=== PATIENT | female | born 1955 | race Caucasian/White ===

== ENCOUNTER 2017-05-27 10:59 | Outpatient (CLI) | payer BC, OTHER ==
--- NOTE | 2017-05-28 15:58 | Mammography Report ---
DIGITAL SCREENING MAMMOGRAM: 05/27/2017 CLINICAL INDICATION: A 62-year-old, for screening. COMPARISON: 12/2015, 06/2014, 04/2013, 06/2011, 06/2010. TECHNIQUE: Routine CC and MLO projections were obtained of the breasts. Bilateral laterally exaggera isabel craniocaudal views. FINDINGS: The breasts again demonstrate heterogeneously dense fibroglandular parenchyma bilaterally. A few punctate, typically benign calcifications are present. No suspicious masses, clustered microca lcifications, or regions of architectural distortion are identified. IMPRESSION: BENIGN FINDINGS. RECOMMENDATION: ROUTINE ANNUAL SCREENING UNLESS OTHERWISE CLINICALLY INDICATED. BIRADS CATEGORY 2-BENIGN FINDINGS. STANDARD QUALIFYING STATEMENTS 1. This examination was reviewed with the aid of Computer-Aided Detection (CAD). 2. A negative or benign imaging report should not delay biopsy if clinically suspicious findings are present. Consider surgical consultation if warranted. More than 5% of cancers are not identified by i maging. 3. Dense breasts may obscure an underlying neoplasm. JOB #: [id number] EXT JOB #:[id number]
== END 2017-05-27 11:00 | disposition home or self-care (01) ==
LOC: DI.N 10:59
PROVIDERS: ATTEND Physician Assistant Medical
DX: Z12.31 Encounter for screening mammogram for malignant neoplasm of breast (principal)
CPT/HCPCS: 77067

== ENCOUNTER 2018-06-20 11:55 | Outpatient (CLI) | payer BC, OTHER ==
--- NOTE | 2018-06-21 13:53 | Mammography Report ---
Reason: SCREENING MAMMO Procedure Date: 06/20/2018 Accession Number: [id number] / [id number] Procedure: MGN - Screening Mammo Dig Bilat CPT Code: FULL RESULT: EXAM: Screening Mammo Dig Bilat DATE: 06/20/2018 12:14 PM CLINICAL HISTORY: Routine screening TECHNIQUE: Bilateral CC and MLO views were obtained. COMPARISON: 05/27/2017, 01/10/2016, 07/25/2014 and 05/29/2013 FINDINGS: The breast tissue is heterogeneously dense. There is no significant interval change. No suspicious masses, clustered microcalcifications, or regions of architectural distortion are identified. IMPRESSION: Negative examination RECOMMENDATION: Routine annual screening unless otherwise clinically indicated. BIRADS CATEGORY 1: Negative STANDARD QUALIFYING STATEMENTS: 1. This examination was reviewed with the aid of Computer-Aided Detection (CAD). 2. A negative or benign imaging report should not delay biopsy if clinically suspicious findings are present. Consider surgical consultation if warrented. More than 5% of cancers are not identified by imaging. 3. Dense breasts may obscure an underlying neoplasm.
== END 2018-06-20 11:56 | disposition home or self-care (01) ==
LOC: DI.N 11:55
DX: Z12.31 Encounter for screening mammogram for malignant neoplasm of breast (principal)
CPT/HCPCS: 77067

== ENCOUNTER 2019-08-02 08:00 | Outpatient (CLI) | payer MEDICARE, OTHER ==
[2019-08-02 13:24] LABS: BASOPHILS # (AUTO) 0.1 10^3/uL (0.0-0.1); BASOPHILS % (AUTO) 1.2 %; EOSINOPHILS # (AUTO) 0.1 10^3/uL (0.0-0.7); EOSINOPHILS % (AUTO) 1.6 %; HGB - HEMOGLOBIN 13.8 g/dL (12.0-16.0); LYMPHOCYTES # (AUTO) 1.5 10^3/uL (1.5-3.5); LYMPHOCYTES % (AUTO) 28.9 %; MEAN CORPUSCULAR HEMOGLOBIN 30.9 pg (27.0-31.0); MEAN CORPUSCULAR HGB CONC 32.2 g/dL (32.0-36.0); MEAN PLATELET VOLUME 10.9 fL (7.9-10.8); MONOCYTES # (AUTO) 0.4 10^3/uL (0.0-1.0); MONOCYTES % (AUTO) 8.6 %; NEUTROPHILS # (AUTO) 3.1 10^3/uL (1.5-6.6); NEUTROPHILS % (AUTO) 59.5 %; PLT - PLATELET COUNT 265 10^3/uL (130-450); RED BLOOD COUNT 4.46 10^6/uL (4.20-5.40); RED CELL DISTRIBUTION WIDTH 12.7 % (12.0-15.0); WHITE BLOOD COUNT 5.1 x10^3/uL (4.8-10.8)
[2019-08-02 13:46] LABS: ALBUMIN 4.3 g/dL (3.2-5.5); ALBUMIN/GLOBULIN RATIO 1.7 (1.0-2.2); ALKALINE PHOSPHATASE 62 IU/L (42-121); ALT ALANINE AMINOTRANSFERASE 16 IU/L (10-60); AST ASPARTATE AMINOTRANSFERASE 22 IU/L (10-42); BILIRUBIN,TOTAL 0.7 mg/dL (0.2-1.0); BUN - BLOOD UREA NITROGEN 20 mg/dL (6-20); CARBON DIOXIDE - CO2 28 mmol/L (21-32); CHLORIDE 105 mmol/L (101-111); CHOL/HDL RATIO 3.1 (<4.4); CHOLESTEROL 255 mg/dL; CREATININE 0.7 mg/dL (0.4-1.0); GFR - MDRD 84 (>89); GLUCOSE 90 mg/dL (70-100); HDL CHOLESTEROL 83 mg/dL; LDL CHOLESTEROL,CALCULATED 159 mg/dL; LDL/HDL RATIO 1.9 (<4.4); SODIUM 139 mmol/L (135-145); TOTAL PROTEIN 6.9 g/dL (6.7-8.2); VLDL CHOLESTEROL 13 mg/dL
== END 2019-08-02 23:59 | disposition home or self-care (01) ==
LOC: LAB.WCP 08:00
PROVIDERS: ATTEND Physician Assistant Medical
DX: E78.5 Hyperlipidemia, unspecified (principal); J45.909 Unspecified asthma, uncomplicated
CPT/HCPCS: 36415; 80053; 80061; 83721; 85025

== ENCOUNTER 2019-10-25 11:36 | Outpatient (CLI) | payer MEDICARE, OTHER ==
--- NOTE | 2019-10-27 09:07 | Ultrasound Report ---
Reason: CAROTID BRUIT Procedure Date: 10/25/2019 Accession Number: [id number] / [id number] Procedure: US - Carotid Doppler Complete CPT Code: Final Report FULL RESULT: EXAM: BILATERAL CAROTID AND VERTEBRAL ARTERY DUPLEX DOPPLER ULTRASOUND: EXAM DATE: 10/25/2019 12:15 PM CLINICAL HISTORY: Carotid bruit. COMPARISON: None. TECHNIQUE: Grayscale imaging, color Doppler, and duplex spectral Doppler were used to evaluate the carotid and vertebral arteries bilaterally. Static images were obtained. FINDINGS: No significant plaque is identified in the right or left common or internal carotid arteries. Normal antegrade flow is present in bilateral vertebral arteries. VELOCITIES (cm/sec): Right CCA mid: PSV 63 cm/sec CCA dist: PSV 54 cm/sec ICA prox: PSV 33 cm/sec, EDV 12 cm/sec ICA mid: PSV 44 cm/sec, EDV 16 cm/sec ICA dist: PSV 66 cm/sec, EDV 19 cm/sec ECA: PSV 62 cm/sec Vert: PSV 59 cm/sec ICA/CCA: 1.05 Left CCA mid: PSV 75 cm/sec CCA dist: PSV 59 cm/sec ICA prox: PSV 41 cm/sec, EDV 16 cm/sec ICA mid: PSV 76 cm/sec, EDV 26 cm/sec ICA dist: PSV 72 cm/sec, EDV 30 cm/sec ECA: PSV 74 cm/sec Vert: PSV 43 cm/sec ICA/CCA: 1.01 ICA diameter stenosis: Right: <50% by velocity and <70% by NASCET criteria. Left: <50% by velocity and <70% by NASCET criteria. IMPRESSION: 1. No significant bilateral carotid artery plaquing. 2. In the right carotid artery there are no elevated carotid artery velocities to suggest hemodynamically significant stenosis. 3. In the left carotid artery there are no elevated carotid artery velocities to suggest hemodynamically significant stenosis. 4. Normal antegrade flow is present in bilateral vertebral arteries. General Recommendations: Stenosis =50% ICA - Follow-up ultrasound 6-12 months Stenosis <50% ICA - High Risk Patient with plaque - Follow-up ultrasound 1-2 years Normal Study but High Risk Patient - Follow-up ultrasound 3-5 years Management recommendations and diagnostic criteria are based on current IAC endorsed standards in Carotid Artery Stenosis: Grayscale and Doppler Ultrasound Diagnosis. Validated velocity measurements with angiographic measurements and velocity criteria are extrapolated from diameter data as defined by the Society of Radiologists in Ultrasound Consensus Conference Radiology 2003; 229;340-346. RADIA
== END 2019-10-25 11:37 | disposition home or self-care (01) ==
LOC: DI 11:36
PROVIDERS: ATTEND Surgery
DX: R09.89 Other specified symptoms and signs involving the circulatory and respiratory systems (principal)
CPT/HCPCS: 93880

== ENCOUNTER 2019-10-26 09:18 | Day surgery (SDC) | payer MEDICARE, OTHER ==
[2019-10-26] MEDS ORDERED: LACTATED RINGERS 1,000 ML IV ONE (09:39)
[2019-10-26] MEDS ORDERED: fentaNYL 250 MCG/5 ML VIAL IVP ONE (10:12)
[2019-10-26] MEDS ORDERED: MIDAZOLAM 2 MG/2 ML VIAL IVP ONE (10:12)
[2019-10-26 11:30] VITALS: BP 150/74
== END 2019-10-26 09:19 | disposition home or self-care (01) ==
LOC: SDS 09:18
PROVIDERS: ATTEND Surgery
DX: Z12.11 Encounter for screening for malignant neoplasm of colon (principal); Q43.8 Other specified congenital malformations of intestine; J45.909 Unspecified asthma, uncomplicated; Z87.891 Personal history of nicotine dependence
CPT/HCPCS: G0121; J3010; J7120

== ENCOUNTER 2019-10-27 09:43 | Outpatient (CLI) | payer MEDICARE, OTHER ==
--- NOTE | 2019-10-30 09:16 | Mammography Report ---
Reason: ROUTINE MAMMO Procedure Date: 10/27/2019 Accession Number: [id number] / [id number] Procedure: MGN - Screening Mammo w/Junior CPT Code: Final Report FULL RESULT: EXAM: Screening Mammo w/Junior DATE: 10/27/2019 10:07 AM CLINICAL HISTORY: Screening encounter. TECHNIQUE: (B) - Bilateral CC and MLO views were obtained. COMPARISON: 06/20/2018 through 05/29/2013. PARENCHYMAL PATTERN: (D) - The breast(s) demonstrate(s) heterogeneously dense fibroglandular parenchyma. FINDINGS: There are no suspicious masses, calcifications, or areas of distortion. IMPRESSION: Negative examination. BI-RADS category 1. RECOMMENDATION: (ANNUAL) - Recommend routine annual screening mammography. BI-RADS CATEGORY: (1) - Negative. STANDARD QUALIFYING STATEMENTS: 1. This examination was not reviewed with the aid of Computer-Aided Detection (CAD). 2. A negative or benign imaging report should not preclude biopsy if clinically suspicious findings are present. 3. Dense breasts may obscure an underlying neoplasm. 4. This examination was reviewed with the aid of 3D breast imaging (tomosynthesis).
== END 2019-10-27 09:44 | disposition home or self-care (01) ==
LOC: DI.N 09:43
DX: Z12.31 Encounter for screening mammogram for malignant neoplasm of breast (principal)
CPT/HCPCS: 77063; 77067

== ENCOUNTER 2020-02-29 15:12 | Outpatient (CLI) | payer MEDICARE, OTHER ==
--- NOTE | 2020-02-29 18:07 | DEXA Report ---
Reason: POST MENOPAUSAL Procedure Date: 02/29/2020 Accession Number: [id number] / [id number] Procedure: DEX - Dexa Spine and/or Hip CPT Code: Final Report FULL RESULT: PROCEDURE: Dexa Spine and/or Hip INDICATIONS: POST MENOPAUSAL TECHNIQUE: Dual energy x-ray absorptiometry (DXA) was performed on a Wander System. Regions measured are the AP Spine, femoral neck, and if needed forearm. COMPARISON: None. FINDINGS: Lumbar Spine: Bone Mineral Density 1.099 g/cm/cm,T score -0.6, normal Left Femoral Neck: Bone Mineral Density 0.966 g/cm/cm, T score -0.3, normal (T score greater or equal to -1.0: NORMAL) (T score from -1.1 to -2.4: OSTEOPENIA) (T score less than or equal to -2.5 to: OSTEOPOROSIS) Impression: Normal bone mineral density for age. Patients with diagnosis of osteoporosis or osteopenia should have regular bone mineral density assessment. For those eligible for Medicare, routine testing is allowed once every 2 years. Testing frequency can be increased for patients who have rapidly progressing disease or for those who are receiving medical therapy to restore bone mass. Reviewed by: Cr Mahajan MD on 02/29/2020 6:06 PM PDT Approved by: Cr Mahajan MD on 02/29/2020 6:06 PM PDT Station ID: [id number]
== END 2020-02-29 15:13 | disposition home or self-care (01) ==
LOC: DI 15:12
PROVIDERS: ATTEND Obstetrics & Gynecology
DX: Z78.0 Asymptomatic menopausal state (principal)
CPT/HCPCS: 77080

== ENCOUNTER 2020-10-29 08:27 | Outpatient (CLI) | payer MEDICARE, OTHER ==
--- NOTE | 2020-10-30 10:06 | Mammography Report ---
BILATERAL DIGITAL SCREENING MAMMOGRAM 3D/2D: 10/29/2020 CLINICAL: Routine screening. Comparison is made to exams dated: 06/20/2018 mammogram, 05/27/2017 mammogram, 01/10/2016 mammogram, 1 09/24/2013 mammogram, and 05/29/2013 mammogram - [facility]. The tissue of both liz sts is heterogeneously dense. This may lower the sensitivity of mammography. No significant masses, calcifications, or other findings are seen in either breast. There has been no significant interval change. IMPRESSION: NEGATIVE There is no mammographic evidence of malignancy. A 1 year screening mammogram is recommended. This exam was interpreted at Station ID: [id number]. NOTE: For mammograms, a report in lay terms will be sent to the patient. Approximately 15% of breast malignancies will not be visualized mammographically. In the management of a palpable breast mass, a negative mammogram must not discourage biopsy of a clinically suspicious lesion. Electronically Signed By: London dumont/jersey:10/29/2020 09:47:57 ACR BI-RADS Category 1: Negative 3341F PARENCHYMAL PATTERN: (D) - The breast(s) demonstrate(s) heterogeneously dense fibroglandular paraletay ma. BI-RADS CATEGORY: (1) - 1 RECOMMENDATION: (ANNUAL) - Recommend routine annual screening mammography. [id number] 1 year screening LATERALITY: (B)
== END 2020-10-29 08:28 | disposition home or self-care (01) ==
LOC: DI.N 08:27
DX: Z12.31 Encounter for screening mammogram for malignant neoplasm of breast (principal)

== ENCOUNTER 2021-09-05 18:59 | Emergency (ER) | payer MEDICARE, OTHER ==
--- NOTE | 2021-09-05 20:36 | XRAY Report ---
PROCEDURE: Chest 2 View X-Ray INDICATIONS: cough TECHNIQUE: 2 view(s) of the chest. COMPARISON: None. FINDINGS: Surgical changes and devices: None. Lungs and pleura: No pleural effusions or pneumothorax. Lungs are clear. Mediastinum: Mediastinal contours are normal. Heart size is normal. Bones and chest wall: No suspicious bony abnormalities. Soft tissues appear unremarkable. IMPRESSION: No evidence acute pulmonary process. Reviewed by: Lakhwinder Keenan MD on 09/05/2021 8:35 PM PST Approved by: Lakhwinder Keenan MD on 09/05/2021 8:35 PM PST Station ID: [id number]
--- NOTE | 2021-09-05 21:13 | ED Physician Documentation ---
PD HPI DYSPNEA - Stated complaint Stated Complaint: SOA/MANUEL - Chief complaint Chief Complaint: Resp - History obtained from History obtained from: Patient - History of Present Illness Timing - onset: How many weeks ago (1) Timing - details: Gradual onset Pain level now: 0 Improved by: Sitting up Worsened by: Laying flat Associated symptoms: Cough (mild). No: Fever, Hemoptysis, Wheezing, Chest pain / discomfort, Bilateral edema, Unilateral edema Similar symptoms before: Has not had sx before Recently seen: Not recently seen - Additional information Additional information: c/o 1 week of dyspnea, nasal congestion, difficulty swallowing, mild cough. Symptoms have worsened over past 1-2 days. She is COVID vaccinated with booster.Denies fever. Review of Systems Constitutional: denies: Fever, Chills, Sweats Throat: denies: Sore throat Cardiac: reports: Reviewed and negative Respiratory: reports: Dyspnea, Cough. denies: Hemoptysis, Wheezing GI: reports: Reviewed and negative PD PAST MEDICAL HISTORY - Past Medical History Past Medical History: Yes Cardiovascular: Hypertension - Present Medications Home Medications: Ambulatory Orders Medication Instructions Recorded Confirmed Albuterol Sulf [Ventolin Hfa 1 puffs INH Q4HR PRN 09/05/21 09/05/21 Inhaler] Losartan [Cozaar] 100 mg PO DAILY 09/05/21 09/05/21 - Allergies Allergies/Adverse Reactions: Allergies Allergy/AdvReac Type Severity Reaction Status Date / Time amoxicillin Allergy Hives Verified 09/05/21 19:10 - Living Situation Living Arrangement: reports: At home PD ED PE NORMAL - Vitals Vital signs reviewed: Yes - General General: Alert and oriented X 3, No acute distress, Well developed/nourished - HEENT HEENT: Moist mucous membranes, Pharynx benign - Neck Neck: Supple, no meningeal sign, Thyroid normal - Cardiac Cardiac: RRR, No murmur - Respiratory Respiratory: No respiratory distress, Clear bilaterally - Abdomen Abdomen: Soft, Non tender - Extremities Extremities: No edema Results - Vitals Vitals: Vital Signs - 24 hr 09/05/21 09/05/21 09/05/21 19:05 21:14 23:02 Temperature 36.4 C L Heart Rate 62 68 57 L Respiratory 20 20 16 Rate Blood Pressure 155/104 H 216/108 H 190/86 H O2 Saturation 100 100 Oxygen O2 Source Room air - Labs Labs: Laboratory Tests 09/05/21 09/05/21 09/05/21 21:45 21:45 21:45 WBC 4.5 L RBC 4.52 Hgb 13.8 Hct 41.7 MCV 92.3 MCH 30.5 MCHC 33.1 RDW 12.7 Plt Count 238 MPV 10.7 Neut # (Auto) 2.0 Lymph # (Auto) 1.8 Conway # (Auto) 0.5 Eos # (Auto) 0.2 Baso # (Auto) 0.0 Absolute Nucleated RBC 0.00 Nucleated RBC % 0.0 Sodium 140 Potassium 3.9 Chloride 102 Carbon Dioxide 27 Anion Gap 11.0 BUN 23 H Creatinine 0.7 Estimated GFR (MDRD) 83 L Glucose 112 H Calcium 9.5 TSH 3.76 - Rads (name of study) chest xray Radiology: Prelim report reviewed, See rad report PD MEDICAL DECISION MAKING - ED course Complexity details: reviewed results, re-evaluated patient, considered differential, d/w patient ED course: presents with URI symptoms (dyspnea, mild cough, nasal congestion). she describes difficulty swallowing although denies odynophagia. Unremarkable blood tests and chest xray. Results reviewed with patient; no specific diagnosis nor t reatment at this time. Her blood pressures were high during ED stay although improved somewhat late in stay; she is due to take her QHS losartan and will do so when she gets home. Has follow up appointment with PMD scheduled for Wednesday. Departure - Departure Disposition: Home, Self Care Clinical Impression: Upper respiratory infection Qualifiers: URI type: unspecified URI Qualified Code(s): J06.9 - Acute upper respiratory infection, unspecified Hypertension Qualifiers: Hypertension type: primary hypertension Qualified Code(s): I10 - Essential (primary) hypertension Condition: Good Instructions: ED Upper Resp Infec No Abx Tx, ED Hypertension Conf Out Of Control Follow-Up: Debi Banks PA-C [Primary Care Provider] - Comments: Your test results tonight are unremarkable (which is reassuring); this includes the chest xray and blood tests. The cause of your symptoms are not clear at this time. Your blood pressures were high during the stay in the emergency department, although you have indicated that you are due to take your losartan (take this as soon as you get home). Follow up on Wednesday with your primary care provider as scheduled. You have a Covid test pending. You need to self quarantine until the result is done and negative. Do not leave your house. Do not get near anybody. The results should be done in 48 to 72 hours. We will call with a positive result, the fastest way to get a negative result for confirmation though is to go to the hospital website at [email or web address], click on the my [facility] tab and sign up for the patient portal. If any friends or family get sick and would like to have a Covid test done, but do not have signs or symptoms that would necessitate being hospitalized, we encourage testing through our coronavirus swabbing station, call [phone] to schedule an appointment. Discharge Date/Time: 09/05/21 23:42
[2021-09-05 22:00] LABS: BASOPHILS % (AUTO) 0.7 %; EOSINOPHILS # (AUTO) 0.2 10^3/uL (0.0-0.7); EOSINOPHILS % (AUTO) 4.5 %; HCT - HEMATOCRIT 41.7 % (37.0-47.0); HGB - HEMOGLOBIN 13.8 g/dL (12.0-16.0); LYMPHOCYTES # (AUTO) 1.8 10^3/uL (1.5-3.5); LYMPHOCYTES % (AUTO) 39.5 %; MEAN CORPUSCULAR HEMOGLOBIN 30.5 pg (27.0-31.0); MEAN CORPUSCULAR HGB CONC 33.1 g/dL (32.0-36.0); MEAN CORPUSCULAR VOLUME 92.3 fL (81.0-99.0); MEAN PLATELET VOLUME 10.7 fL (7.9-10.8); MONOCYTES # (AUTO) 0.5 10^3/uL (0.0-1.0); MONOCYTES % (AUTO) 11.7 %; NEUTROPHILS % (AUTO) 43.6 %; PLT - PLATELET COUNT 238 10^3/uL (130-450); RED BLOOD COUNT 4.52 10^6/uL (4.20-5.40); RED CELL DISTRIBUTION WIDTH 12.7 % (12.0-15.0); WHITE BLOOD COUNT 4.5 x10^3/uL (4.8-10.8)
[2021-09-05 22:10] LABS: CALCIUM 9.5 mg/dL (8.5-10.3); CREATININE 0.7 mg/dL (0.4-1.0); POTASSIUM 3.9 mmol/L (3.5-5.0)
[2021-09-05 23:05] VITALS: BP 190/86
== END 2021-09-05 23:42 | disposition home or self-care (01) ==
LOC: ED 18:59
DX: U07.1 COVID-19 (principal); I10 Essential (primary) hypertension
CPT/HCPCS: 36415; 71046; 80048; 84443; 85025; 99282; 99284; U0004

== ENCOUNTER 2022-02-17 08:00 | Outpatient (CLI) | payer MEDICARE, OTHER | END 2022-02-17 23:59 | disposition home or self-care (01) | LOC: LAB.N 08:00 | PROVIDERS: ATTEND Physician Assistant | DX: M25.511 Pain in right shoulder (principal) | CPT/HCPCS: 36415; 82550; 85651 ==

== ENCOUNTER 2022-09-18 09:50 | Outpatient (CLI) | payer MEDICARE, OTHER ==
--- NOTE | 2022-09-18 11:07 | Mammography Report ---
BILATERAL DIGITAL SCREENING MAMMOGRAM 3D/2D: 09/18/2022 CLINICAL: Routine screening. Comparison is made to exams dated: 10/29/2020 mammogram, 06/20/2018 mammogram, 05/27/2017 mammogram, an d 01/10/2016 mammogram - [facility]. Both breasts are heterogeneously dense, which may obscure small masses (category c / 51-75% glandular tissue). There is a possible developing focal asymmetry in the left breast at 1 o'clock middle depth. This is more prominent and increased in size. There is architectural distortion associated with the focal a symmetry. No other significant masses, calcifications, or other findings are seen in either breast. IMPRESSION: INCOMPLETE: NEEDS ADDITIONAL IMAGING EVALUATION The possible developing focal asymmetry in the left breast is indeterminate. Additional views with p ossible ultrasound are recommended. Based on the Tyrer Cuzick model (a risk assessment model) the patients lifetime risk is 7.4% and her 10 year risk is 4.1%. According to the ACR, ACS, and NCCN guidelines, an annual breast MRI exam tanika g with mammogram is recommended if the patients lifetime risk is 20% or greater. This exam was interpreted at Station ID: [id number]. NOTE: For mammograms, a report in lay terms will be sent to the patient. Approximately 15% of breast malignancies will not be visualized mammographically. In the management of a palpable breast mass, a negative mammogram must not discourage biopsy of a clinically suspicious lesion. Electronically Signed By: Camden Franco M.D., jr/jersey:09/18/2022 10:20:10 ACR BI-RADS Category 0: Incomplete 3340F PARENCHYMAL PATTERN: (D) - The breast(s) demonstrate(s) heterogeneously dense fibroglandular parenchy ma. BI-RADS CATEGORY: (0) - 0 Mammo and [place] [id number] Immediate follow-up LATERALITY: (B)
== END 2022-09-18 09:51 | disposition home or self-care (01) ==
LOC: DI 09:50
DX: Z12.31 Encounter for screening mammogram for malignant neoplasm of breast (principal); R92.8 Other abnormal and inconclusive findings on diagnostic imaging of breast

== ENCOUNTER 2022-12-11 12:28 | Outpatient (CLI) | payer MEDICARE, OTHER ==
--- NOTE | 2022-12-14 10:58 | Ultrasound Report ---
LIMITED ULTRASOUND OF LEFT BREAST: 12/11/2022 CLINICAL: Patient returns today to evaluate an asymmetry in the left breast. Comparison is made to exams dated: 12/11/2022 mammogram, 09/18/2022 mammogram, 10/29/2020 mammogram, mammogram, 05/27/2017 mammogram, and 01/10/2016 mammogram - [facility]. Real-time ultrasound of the left breast 11-2 o'clock region was performed. Vogel scale images of the real-time examination were reviewed. No significant abnormalities were seen sonographically in the left breast. IMPRESSION: NEGATIVE There is no sonographic evidence of malignancy. There is no abnormality seen in the left breast to correspond with the mammography finding which like ly represents normal fibroglandular tissue. A 1 year screening mammogram is recommended. Findings and recommendations were conveyed to the patient during today's evaluation. This exam was interpreted at Station ID: [id number]. Electronically Signed By: Cr Mahajan M.D. aty/:12/11/2022 13:41:46 Ultrasound BI-RADS: 1 Negative BI-RADS CATEGORY: (1) - 1 Mammogram [id number] 1 year screening LATERALITY: (B)
--- NOTE | 2022-12-14 10:58 | Mammography Report ---
UNILATERAL LEFT DIGITAL DIAGNOSTIC MAMMOGRAM 3D/2D: 12/11/2022 CLINICAL: Patient returns today to evaluate a focal asymmetry in the left breast. Comparison is made to exams dated: 09/18/2022 mammogram, 10/29/2020 mammogram, 06/20/2018 mammogram, mammogram, and 01/10/2016 mammogram - [facility]. The left breast is heterogeneously dense, which may obscure small masses (category c / 51-75% glandul ar tissue). The previously described possible developing focal asymmetry in the left breast at 1 o'clock middle d epth is no longer seen and most likely is fibroglandular tissue. The possible architectural distorti on associated with the focal asymmetry is also no longer seen. This is consistent with summation ar tifact. No other significant masses or calcifications are seen in the breast. IMPRESSION: INCOMPLETE: NEEDS ADDITIONAL IMAGING EVALUATION An ultrasound is recommended to confirm the no longer seen focal asymmetry in the left breast middle depth and is scheduled to immediately follow this exam. Based on the Tyrer Cuzick model (a risk assessment model) the patients lifetime risk is 7.4% and her 10 year risk is 4.1%. According to the ACR, ACS, and NCCN guidelines, an annual breast MRI exam tanika g with mammogram is recommended if the patients lifetime risk is 20% or greater. This exam was interpreted at Station ID: [id number]. NOTE: For mammograms, a report in lay terms will be sent to the patient. Approximately 15% of breast malignancies will not be visualized mammographically. In the management of a palpable breast mass, a negative mammogram must not discourage biopsy of a clinically suspicious lesion. Electronically Signed By: Cr Mahajan M.D. aty/:12/11/2022 13:41:04 ACR BI-RADS Category 0: Incomplete 3340F PARENCHYMAL PATTERN: (D) - The breast(s) demonstrate(s) heterogeneously dense fibroglandular pardarby lewis. BI-RADS CATEGORY: (0) - 0 Ultrasound [id number] Immediate follow-up LATERALITY: (L)
== END 2022-12-11 12:29 | disposition home or self-care (01) ==
LOC: DI 12:28
PROVIDERS: ATTEND Family Medicine
DX: R92.8 Other abnormal and inconclusive findings on diagnostic imaging of breast (principal)

== ENCOUNTER 2024-02-04 09:40 | Outpatient (CLI) | payer MEDICARE, OTHER ==
--- NOTE | 2024-02-04 12:31 | XRAY Report ---
PROCEDURE: Cervical Spine 2-3V INDICATIONS: CERVICAL RADICULOPATHY, RIGHT TECHNIQUE: 4 view(s) of the cervical spine were acquired. COMPARISON: None. FINDINGS: Bones: No fractures or dislocations to the C7 level. Straightening of normal cervical lordosis. Mild anterolisthesis of C3 on C4 and mild retrolisthesis of C4 on C5. Multilevel degenerative changes of the cervical spine with facet and uncovertebral arthropathy, disc height loss, endplate degenerative changes and spurring. This is most pronounced at C5-C6. The lateral masses of C1 appear intact on th e odontoid view. No suspicious bony lesions. Soft tissues: No prevertebral soft tissue swelling. IMPRESSION: Degenerative changes of the cervical spine, most pronounced at C5-C6. Reviewed by: Trevor Alexandre MD on 02/04/2024 12:30 PM PDT Approved by: Trevor Alexandre MD on 02/04/2024 12:30 PM PDT Station ID: [id number]
== END 2024-02-04 13:52 | disposition home or self-care (01) ==
LOC: DI.N 09:40
PROVIDERS: ATTEND Physician Assistant
DX: M47.812 Spondylosis without myelopathy or radiculopathy, cervical region (principal)

== ENCOUNTER 2024-05-11 14:31 | Outpatient (CLI) | payer MEDICARE, OTHER ==
--- NOTE | 2024-05-11 16:00 | XRAY Report ---
PROCEDURE: Foot 3+V LT (Weight Bearing) INDICATIONS: LEFT FOOT PAIN TECHNIQUE: 3 views of the foot were acquired. COMPARISON: None. FINDINGS: Bones: No fractures or dislocations. No pes planus deformity. Moderate irregular joint space loss an d marginal spur formation at the first MTP joint. Marginal spurring at the DIP joints 2 through 5. N o suspicious bony lesions. Soft tissues: No tibiotalar joint effusion. Achilles tendon appears normal. 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 Reviewed by: Janee Peck MD on 05/11/2024 3:58 PM PDT Approved by: Janee Peck MD on 05/11/2024 3:58 PM PDT Station ID: [id number]
== END 2024-05-11 14:32 | disposition home or self-care (01) ==
LOC: DI 14:31
PROVIDERS: ATTEND Podiatrist
DX: M19.072 Primary osteoarthritis, left ankle and foot (principal)